=== PATIENT | male | born 1935 | race Caucasian/White ===

== ENCOUNTER 2021-11-25 12:22 | Emergency (ER) | payer OTHER, MEDICARE ==
[~2021-11-25] VITALS: Ht 167.6 cm; Wt 89.0 kg
[2021-11-25 12:50] VITALS: BP 138/63
[2021-11-25] MEDS ORDERED: DEXAMETHASONE 6 MG TABLET PO SCH (14:10)
--- NOTE | 2021-11-25 14:48 | NUR ---
Pt ambulated 100ft without O2. O2 Sats remained above 94%. Pt used his cane to assist with ambulation. Pt stated that his tremors became worst over the past 2 weeks.
[2021-11-25] MEDS ORDERED: DEXA6TAB PO ×4 (15:02→17:19)
--- NOTE | 2021-11-25 15:19 | NUR ---
Pt given and understands d/c instructions. IV d/c'd, catheter was intact. Ambulatory with a cane.
== END 2021-11-25 15:29 | disposition home or self-care (01) ==
LOC: ER 12:22
DX: U07.1 COVID-19 (principal); J12.82 Pneumonia due to coronavirus disease 2019; J44.9 Chronic obstructive pulmonary disease, unspecified; Z79.899 Other long term (current) drug therapy
CPT/HCPCS: 71045; 99283; J8540

== ENCOUNTER 2021-11-29 13:03 | Inpatient (IN) | payer OTHER, MEDICARE ==
[~2021-11-29] VITALS: Ht 170.2 cm; Wt 87.0 kg
[~2021-11-29 13:03] MED LIST: DEXA6TAB PO
[2021-11-29 14:31] LABS: BASOPHILS % (AUTO) 0.5 % (0-1); EOSINOPHILS % (AUTO) 0.1 % (0-6); HEMATOCRIT 40.3 % (42.0-52.0); HEMOGLOBIN 13.6 g/dl (14.0-17.9); LYMPHOCYTES # (AUTO) 0.5 X10'3 (1.1-4.8); LYMPHOCYTES % (AUTO) 9.2 % (21-51); MEAN CORPUSCULAR HEMOGLOBIN 31.5 PG (27.0-31.0); MEAN CORPUSCULAR HGB CONC 33.8 g/dL (33.0-36.5); MEAN CORPUSCULAR VOLUME 93.2 FL (78-98); MEAN PLATELET VOLUME 7.6 FL (7.4-10.4); MONOCYTES # (AUTO) 0.6 X10'3 (0-0.9); MONOCYTES % (AUTO) 11.6 % (2-12); NEUTROPHILS # (AUTO) 4.2 X10'3 (1.8-7.7); NEUTROPHILS % (AUTO) 78.6 % (42-75); PLATELET COUNT 300 X10'3 (140-440); RED BLOOD COUNT 4.32 X10'6 (4.70-6.10); RED CELL DISTRIBUTION WIDTH 14.2 % (11.5-14.5); WHITE BLOOD COUNT 5.4 X10'3 (4.5-11.0)
[2021-11-29 14:47] LABS: ALANINE AMINOTRANSFERASE 28 U/L (12-78); ALBUMIN 2.7 G/DL (3.4-5.0); ALBUMIN/GLOBULIN RATIO 0.7 (1.1-1.5); ALKALINE PHOSPHATASE 39 IU/L (46-116); ANION GAP 12 (8-16); ASPARTATE AMINO TRANSFERASE 35 U/L (10-37); BILIRUBIN,TOTAL 0.6 MG/DL (0.1-1.0); BLOOD UREA NITROGEN 23 MG/DL (7-18); BUN/CREATININE RATIO 15.3 (5.4-32.0); CALCIUM 8.3 MG/DL (8.5-10.1); CHLORIDE 99 MMOL/L (99-107); GLUCOSE 101 MG/DL (70-104); SODIUM 138 MMOL/L (135-145); TOTAL CARBON DIOXIDE 27.2 MMOL/L (24-32); TOTAL PROTEIN 6.8 G/DL (6.4-8.2); eGFR 44 ML/MIN
[2021-11-29 14:49] LABS: MAGNESIUM 1.9 MG/DL (1.5-2.4)
[2021-11-29] MEDS ORDERED: potassium Cl 20 mEq SR tablet PO STA ×2 (15:33→15:35)
[2021-11-29] MEDS ORDERED: potassium Cl 20 mEq/100mL bag IV ONE (15:35)
[2021-11-29 16:07] LABS: D-DIMER 0.59 MG/L FEU (0-0.50)
[2021-11-29 16:14] LABS: C-REACTIVE PROTEIN 8.56 MG/DL (0.0-0.5)
--- NOTE | 2021-11-29 16:53 | NUR ---
Pt refusing to let potassium finish as it was burning his hand. CHRISTIANO Houser aware.
[2021-11-29] MEDS ORDERED: dexamethasone sod phosphate 10mg/ml inj IM STA (16:56)
[2021-11-29] MEDS ORDERED: azithromycin/NS 500mg/250ml 250 ML IV ONE (17:00)
[2021-11-29] MEDS ORDERED: CefTRIAXone/D5W-Rocephin 1gm 50 ML IV ONE (17:00)
[2021-11-29] MEDS ORDERED: mag hydrox/Alum hydrox/simeth 30ml oral suspension PO PRN (17:55)
[2021-11-29] MEDS ORDERED: acetaminophen 325mg tablet PO PRN ×2 (17:55)
[2021-11-29] MEDS ORDERED: magnesium hydroxide 30ml (MOM) UD suspension PO PRN (17:55)
[2021-11-29] MEDS ORDERED: morphine 2 MG/ML inj. syringe IV PRN ×2 (17:55)
[2021-11-29] MEDS ORDERED: ondansetron/PF 4mg/2ml inj IV PRN (17:55)
[2021-11-29] MEDS ORDERED: HYDROcodone/acetaminophen 5mg/325mg tablet PO PRN (17:55)
[2021-11-29 18:33] LABS: FERRITIN 345 NG/ML (26-388); LACTATE DEHYDROGENASE 388 U/L (85-227)
[2021-11-29] MEDS ORDERED: REMDESIVIR INJ 200 MG in normal saline 100ml IV soln 100 ML IV ONE (19:00)
[2021-11-29] MEDS: docusate sod 100mg capsule PO SCH (20:00)
[2021-11-29] MEDS: dexamethasone inj 6 MG in dextrose 5%-water 100 ML IV SCH (20:13)
[2021-11-29] MEDS: enoxaparin 40mg/0.4ml syringe SUBCUT SCH (22:30)
[2021-11-30] MEDS: dexamethasone inj 6 MG in dextrose 5%-water 100 ML IV SCH ×2 (08:00→21:01)
--- NOTE | 2021-11-30 08:00 | NUR ---
BREAKFAST GIVEN PT AWAKE ALERT ORIENTED DENIES NEEDS AT THIS TIME
[2021-11-30] MEDS: docusate sod 100mg capsule PO SCH ×2 (08:05→20:00)
[2021-11-30 09:14] LABS: D-DIMER 0.85 MG/L FEU (0-0.50)
[2021-11-30 09:28] LABS: C-REACTIVE PROTEIN 11.77 MG/DL (0.0-0.5)
--- NOTE | 2021-11-30 10:05 | NUR ---
ATTEMPTED TO CALL REPORT TO ORRIAO RN ON BREAK TOLD WOULD CALL BACK IN 5 MINUTES
--- NOTE | 2021-11-30 10:30 | NUR ---
ATTEMPTING TO CALL REPORT ON PT ON HOLD FOR 15 MINUTES NO ANSWER
--- NOTE | 2021-11-30 10:51 | NUR ---
ATTEMPTING TO CALL REPORT ON PT FOR 3RD TIME
--- NOTE | 2021-11-30 11:23 | NUR ---
RN ATTEMPTED TO CALL REPORT FOR 4TH TIME WAITED ON HOLD FOR 5 MINUTES RN TAKING PT TO FLOOR FOR BEDSIDE REPORT TO PREVENT FURTHER DELAY OF CONTINUED CARE
[2021-11-30 14:00] VITALS: BP 142/74
[2021-11-30] MEDS ORDERED: ASCO-134 PO (14:19)
[2021-11-30] MEDS ORDERED: PRED20TA PO (14:19)
[2021-11-30] MEDS ORDERED: AMLO10TA PO (14:19)
[2021-11-30] MEDS ORDERED: CETI10TA15 PO (14:19)
[2021-11-30] MEDS ORDERED: FLUT1DIS20 INH (14:19)
[2021-11-30] MEDS ORDERED: LEVA0.6319 NEB (14:19)
[2021-11-30] MEDS ORDERED: BRIM5DRO16 EACHEYE (14:19)
[2021-11-30] MEDS ORDERED: AMMO225L14 TP (14:19)
[2021-11-30] MEDS ORDERED: LEVA15HF4 INH (14:19)
[2021-11-30] MEDS ORDERED: XAL0.005OS OP (14:19)
[2021-11-30] MEDS ORDERED: MAGN400C PO (14:19)
[2021-11-30] MEDS ORDERED: HYDR25TA5 PO (14:19)
[2021-11-30] MEDS ORDERED: CHOL100025 PO (14:19)
[2021-11-30] MEDS ORDERED: FLO0.4C PO (14:22)
[2021-11-30] MEDS ORDERED: ZINC50TA60 PO (14:22)
[2021-11-30] MEDS ORDERED: THEO300T46 PO (14:22)
[2021-11-30 18:00] VITALS: BP 133/66
[2021-11-30] MEDS ORDERED: REMDESIVIR INJ 100 MG in normal saline 100ml IV soln 100 ML IV SCH (20:00)
[2021-11-30] MEDS: enoxaparin 40mg/0.4ml syringe SUBCUT SCH (21:03)
[2021-11-30 22:00] VITALS: BP 167/92
[2021-12-01 02:00] VITALS: BP 125/69
--- NOTE | 2021-12-01 05:36 | NUR ---
I entered the patient room to administer Remesivir when asked what medication I was giving him. I informed the patient the name of the medication and the patient stated "he heard not good thing about it". As I was walking out the room the took his phone and google the side effects of remesivir and then refused the med.
[2021-12-01 06:00] VITALS: BP 115/80
--- NOTE | 2021-12-01 06:15 | NUR ---
Problems reprioritized. Patient report given, questions answered & plan of care reviewed with
--- NOTE | 2021-12-01 08:33 | NUR ---
Paged Dr Jesus PAGER ID: [phone] MESSAGE: [phone]. Alvarez Tolliver. Pt wants d/c ppwk. Son drove up from [facility] to take care of him. Zarina [phone]
[2021-12-01 09:25] LABS: C-REACTIVE PROTEIN 10.53 MG/DL (0.0-0.5)
--- NOTE | 2021-12-01 09:30 | NUR ---
Ambulated pt in room on RA - did not go below 91%. Did not qualify for home O2.
[2021-12-01] MEDS: dexamethasone inj 6 MG in dextrose 5%-water 100 ML IV SCH (09:42)
[2021-12-01] MEDS: docusate sod 100mg capsule PO SCH (09:42)
[2021-12-01 10:00] VITALS: BP 120/75
[2021-12-01] MEDS ORDERED: APIX5TAB3 PO (10:17)
[2021-12-01] MEDS ORDERED: DEC4T PO (10:17)
--- NOTE | 2021-12-01 10:33 | NUR ---
Spoke with patient son, Rashaad - advised of d/c and proper precautions to take with self isolation. Arm[facility] faxed to [facility].
--- NOTE | 2021-12-01 11:20 | NUR ---
pt refusing ALL vaccinations - he does not believe in them
--- NOTE | 2021-12-01 11:38 | NUR ---
Called Audra Begum In [facility] . Called in 2 new prescriptions since [place] pharmacy is closed.
--- NOTE | 2021-12-01 11:47 | NUR ---
Called Rashaad, son - advised of d/c ppwk. He verbalized understanding.
--- NOTE | 2021-12-01 12:43 | NUR ---
Pt stable for D/C Pt stable for d/c per MD orders. All D/C ppwk reviewed with patient - pt verbalized understanding. All D/C ppwk reviewed over the phone with patient son, Rashaad - he verbalized understanding. New RX called into [facility] - eliquis coupon given to patient. Tele box 41 removed from patient and delivered to television cabinet finisher monitor. All personal belongings sent with patient excluding a cane and blue shirt which patient states ER lost. Called ER to see if they have seen it. They have not. Patient states that it was probably left behind a w/c or something. He is not worried about it and just wants to go home. Pt wheeled out in w/c to private vehicle where son Rashaad was waiting.
== END 2021-12-01 12:40 | disposition home health service (06) | DRG 177 ==
LOC: ER 13:04 → ED HOLD 18:01 → ORTHO 4S 11-30 12:10
PROVIDERS: ADMIT Internal Medicine; ATTEND Internal Medicine
PROC: XW033E5 Introduction of Remdesivir Anti-infective into Peripheral Vein, Percutaneous Approach, New Technology Group 5 (ICD-10-PCS; principal; 2021-11-29)
DX: U07.1 COVID-19 (principal); J12.82 Pneumonia due to coronavirus disease 2019; J96.01 Acute respiratory failure with hypoxia; J44.0 Chronic obstructive pulmonary disease with (acute) lower respiratory infection; N17.9 Acute kidney failure, unspecified; I25.10 Atherosclerotic heart disease of native coronary artery without angina pectoris; E87.6 Hypokalemia; I25.2 Old myocardial infarction; Z87.891 Personal history of nicotine dependence; Z85.038 Personal history of other malignant neoplasm of large intestine; Z79.899 Other long term (current) drug therapy
CPT/HCPCS: 36415; 71045; 80053; 82728; 83605; 83615; 83735; 83880; 84145; 84484; 85025; 85379; 86140; 87040; 87077; 87186; 93005; 94760; 96374; 99285; G0378; J1100; J1650; J3480; J3490; J7060